=== PATIENT | female | born 1970 | race Two or more races ===

== ENCOUNTER 2019-06-07 08:12 | Day surgery (SDC) | payer OTHER ==
[2019-06-07] MEDS ORDERED: MIDAZOLAM HCL 2 MG/2ML VIAL ONE (12:02)
[2019-06-07] MEDS ORDERED: BUPIVACAINE MPF 0.5% W/EPI INJ 30 ML VIAL ONE (12:47)
[2019-06-07] MEDS ORDERED: FENTANYL PF 100MCG/2ML AMPUL ONE (12:48)
[2019-06-07] MEDS ORDERED: HYDROCODONE/APAP 10/325MG 1 EA TABLET ONE (13:41)
== END 2019-06-07 14:20 | disposition home or self-care (01) ==
LOC: DS 08:12
PROVIDERS: ATTEND Orthopaedic Surgery
DX: M23.8X1 Other internal derangements of right knee (principal); E78.5 Hyperlipidemia, unspecified
CPT/HCPCS: 29881; 84703; 88304; 88311; A4217; A6253; J2250; J3010; J3490; J0690; J1100; J1885; J2405; J2704

== ENCOUNTER 2019-10-29 08:50 | Day surgery (SDC) | payer OTHER ==
[2019-10-29] MEDS ORDERED: BUPIVACAINE 0.5 % PF 150 MG/30 ML VIAL ONE (12:10)
[2019-10-29] MEDS ORDERED: KETOROLAC TROMETHAMINE INJ 30 MG/ML VIAL ONE (12:38)
== END 2019-10-29 14:00 | disposition home or self-care (01) ==
LOC: DS 08:50
PROVIDERS: ATTEND Orthopaedic Surgery
DX: G56.02 Carpal tunnel syndrome, left upper limb (principal); M65.842 Other synovitis and tenosynovitis, left hand
CPT/HCPCS: 25115; 64721; 84703; 87635; A6402; J1100; J1885; J2405; J2704; J3490